=== PATIENT | male | born 1965 | race Caucasian/White ===

== ENCOUNTER 2021-08-17 18:24 | Emergency (ER) | payer OTHER ==
[~2021-08-17 18:24] MED LIST: BACTRIM DS TAB1 EACH PO
[2021-08-17] MEDS ORDERED: CILOXAN5 ML EYERT (20:58)
[2021-08-17] MEDS ORDERED: AMOX TR-K CLV1 EAC4 PO (22:38)
[2021-08-17] MEDS ORDERED: BACTRIM DS TAB1 EACH PO (22:38)
[2021-08-17] MEDS ORDERED: ACULAR5 ML OD (22:38)
== END 2021-08-17 23:01 | disposition home or self-care (01) ==
LOC: FER 18:24
DX: L03.213 Periorbital cellulitis (principal)
CPT/HCPCS: 70486; J1100